=== PATIENT | male | born 1970 | race Asian ===

== ENCOUNTER 2017-05-08 08:50 | Emergency (ER) | payer SELFPAY ==
[~2017-05-08] VITALS: Ht 177.8 cm; Wt 77.1 kg
[~2017-05-08 08:50] MED LIST: VIC PO
[2017-05-08 09:04] VITALS: BP 139/88
[2017-05-08] MEDS ORDERED: ASPIRIN 325 MG TAB PO ONE (09:10)
[2017-05-08] MEDS ORDERED: NITROGLYCERIN 0.4 MG TAB SL ONE (09:10)
--- NOTE | 2017-05-08 09:28 | NUR ---
Lab at bedside
--- NOTE | 2017-05-08 09:38 | NUR ---
Pt came in ER for chest pain at right lower chest since 4 days, pain is stabbing and 10/10 and does not radiate anywhere. Pain worsen with movement and inhaling. Pt took advil without relief. No SOB. Skin is warm and dry. Denies trauma or injuries. AOx4, NAD. Pt is on pulse ox, classroom monitor showing NSR. Breathing even and unlabored.
[2017-05-08 09:53] LABS: BASOPHILS # (AUTO) 0.3 K/uL (0.00-0.22); BASOPHILS % (AUTO) 4.9 % (0.0-2.0); EOSINOPHILS # (AUTO) 0.1 K/uL (0-0.4); EOSINOPHILS % (AUTO) 2.1 % (0.0-4.0); HEMATOCRIT 42.7 % (36-52); HEMOGLOBIN 14.8 g/dL (12.0-18.0); LYMPHOCYTES # (AUTO) 1.1 K/uL (2.0-11.5); LYMPHOCYTES % (AUTO) 18.6 % (20.5-51.1); MEAN CORPUSCULAR HEMOGLOBIN 35 pg (27-31); MEAN CORPUSCULAR HGB CONC 35 g/dL (33-37); MEAN CORPUSCULAR VOLUME 102 fL (80-94); MONOCYTES # (AUTO) 0.7 K/uL (0.8-1.0); MONOCYTES % (AUTO) 11.2 % (1.7-9.3); NEUTROPHILS # (AUTO) 3.9 K/uL (1.8-7.7); NEUTROPHILS % (AUTO) 63.2 % (42.2-75.2); PLATELET COUNT (AUTO) 173 K/uL (140-450); RED BLOOD CELL COUNT(AUTO) 4.21 MIL/uL (4.20-6.10); RED CELL DISTRIBUTION WIDTH 13.1 % (11.6-13.7); WHITE BLOOD COUNT (AUTO) 6.1 K/uL (4.8-10.8)
[2017-05-08 10:16] LABS: ANION GAP 16.8 (8-16); CARBON DIOXIDE 23.7 mmol/L (21-32); CREATININE 1.1 mg/dL (0.7-1.3); POTASSIUM 4.5 mmol/L (3.5-5.1)
[2017-05-08] MEDS: KETOROLAC 30 MG/ML VIAL IM ONE ×2 (10:18→11:45)
[2017-05-08 10:23] LABS: ALBUMIN 4.2 g/dL (3.4-5.0); TOTAL BILIRUBIN 0.7 mg/dL (0.0-1.0)
--- NOTE | 2017-05-08 10:45 | NUR ---
Patient discharged with v/s stable. Written and verbal after care instructions given and explained. Patient alert, oriented and verbalized understanding of instructions. ambulatory with use of cane steady gait. All questions addressed prior to discharge. ID band removed. Patient advised to follow up with PMD. Rx of naproxen and tessalon given. Patient educated on indication of medication including possible reaction and side effects. Opportunity to ask questions provided and answered.
[2017-05-08 11:30] VITALS: BP 110/68
[2017-05-08] MEDS ORDERED: KETOROLAC 30 MG/ML VIAL IVP ONE (11:45)
== END 2017-05-08 10:45 | disposition home or self-care (01) ==
LOC: MED 08:50
DX: M94.0 Chondrocostal junction syndrome [Tietze] (principal); M25.552 Pain in left hip; F17.210 Nicotine dependence, cigarettes, uncomplicated; Z79.899 Other long term (current) drug therapy; Z88.0 Allergy status to penicillin; Z96.643 Presence of artificial hip joint, bilateral
CPT/HCPCS: 36415; 71045; 73502; 80053; 83880; 84484; 85025; 93005; 99285; J1885; Q0092

== ENCOUNTER 2019-06-05 16:17 | Emergency (ER) | payer MEDICAID, OTHER ==
[~2019-06-05] VITALS: Ht 177.8 cm; Wt 74.8 kg
[2019-06-05 16:31] VITALS: BP 115/74
--- NOTE | 2019-06-05 16:38 | NUR ---
WAIT AT LOBBY.
--- NOTE | 2019-06-05 17:25 | NUR ---
PT AMBULATED TO ER BED 03
--- NOTE | 2019-06-05 17:30 | NUR ---
C/O LEFT HIP PAIN S/P TC X 1 WEEK. MED HX: BOB HIP REPLACEMENT . DENIES N/V/D; SKIN IS PINK/WARM/DRY; AAOX4 WITH EVEN AND STEADY GAIT; LUNGS CLEAR BL; HR EVEN AND REGULAR; PT DENIES ANY FEVER, CP, SOB, OR COUGH AT THIS TIME; PATIENT STATES PAIN OF 10/10 AT THIS TIME; VSS; PATIENT POSITIONED FOR COMFORT; HOB ELEVATED; BEDRAILS UP X2; BED DOWN. ER MD MADE AWARE OF PT STATUS.
[2019-06-05] MEDS ORDERED: KETOROLAC 60 MG/2 ML VIAL IM ONE (18:45)
[2019-06-05 19:11] VITALS: BP 110/68
--- NOTE | 2019-06-05 19:11 | NUR ---
Patient discharged with v/s stable. Written and verbal after care instructions given and explained. Patient alert, oriented and verbalized understanding of instructions. Ambulatory with steady gait. All questions addressed prior to discharge. ID band removed. Patient advised to follow up with PMD. Rx of FLEXIRIL, IBUPROFEN given. Patient educated on indication of medication including possible reaction and side effects. Opportunity to ask questions provided and answered.
== END 2019-06-05 19:11 | disposition home or self-care (01) ==
LOC: MED 16:17
DX: S76.012A Strain of muscle, fascia and tendon of left hip, initial encounter (principal); Z88.0 Allergy status to penicillin; Z79.899 Other long term (current) drug therapy; V23.4XXA Motorcycle driver injured in collision with car, pick-up truck or van in traffic accident, initial encounter; Y93.55 Activity, bike riding; Y92.89 Other specified places as the place of occurrence of the external cause; Y99.8 Other external cause status
CPT/HCPCS: 73521; 96372; 99283; J1885; Q0092